=== PATIENT | female | born 1960 | race Caucasian/White ===

== ENCOUNTER 2016-11-16 08:23 | Emergency (ER) | payer BC ==
--- NOTE | 2016-11-16 08:35 | UC ---
Throat Pain/Nasal [place] HPI - HPI Summary HPI Summary: fever,sever facial pain in frontal sinus L>R. nasal congestion, feeling dizzy for 7 days - History of Current Complaint Chief Complaint: UCHeadache Stated Complaint: SINUS COMPLAINT Time Seen by Provider: 11/16/16 08:25 Hx Obtained From: Patient ?: No Onset/Duration: Sudden Onset, Lasting Days - 7, Still Present, Worse Since - past day Severity: Moderate Pain Intensity: 5 Pain Scale Used: 0-10 Numeric Cough: Nonproductive Associated Signs & Symptoms: Positive: Sinus Discomfort, Nasal Discharge, Fever Related History: Smoking, T & A - Allergies/Home Medications Allergies/Adverse Reactions: Allergies Allergy/AdvReac Type Severity Reaction Status Date / Time ROGER BASED ANTIBIOTIC Allergy Itching Uncoded 11/16/16 08:27 Home Medications: Home Medications guaiFENesin ER TAB [Mucinex*] 11/16/16 [History] PMH/Surg Hx/FS Hx/Imm Hx Previously Healthy: No - ADD - Family History Family History: denies cardiovascular issues in family lineage - Social History Occupation: Employed Full-time - [employer] Lives: With Family Alcohol Use: Weekly Substance Use Type: None Smoking Status (MU): Heavy Every Day Tobacco Smoker Type: Cigarettes Have You Smoked in the Last Year: Yes Household Exposure Type: Cigarettes Cessation Counseling: Counseled 3+Min - 10 Min Review of Systems Constitutional: Fever Skin: Negative Eyes: Negative ENT: Dental Pain, Ear Ache, Nasal Discharge Respiratory: Cough Cardiovascular: Negative Gastrointestinal: Negative Genitourinary: Negative Motor: Negative Neurovascular: Negative Musculoskeletal: Negative Neurological: Headache Psychological: Negative All Other Systems Reviewed And Are Negative: Yes Physical Exam Triage Information Reviewed: Yes Appearance: Well-Nourished, Ill-Appearing - mild, Pain Distress - mild Vital Signs Reviewed: Yes Eye Exam: Normal Eyes: Positive: Conjunctiva Clear ENT Exam: Normal ENT: Positive: Normal ENT inspection, Hearing grossly normal, Pharynx normal, Nasal congestion, Nasal drainage, TMs normal. Negative: Trismus, Muffled/ hoarse voice Neck exam: Normal Neck: Positive: Supple, Nontender, No Lymphadenopathy Respiratory Exam: Normal Respiratory: Positive: Chest non-tender, Lungs clear, Normal breath sounds, No respiratory distress, No accessory muscle use Cardiovascular Exam: Normal Cardiovascular: Positive: RRR, No Murmur, Pulses Normal, Brisk Capillary Refill Musculoskeletal Exam: Normal Musculoskeletal: Positive: Strength Intact, ROM Intact, No Edema Neurological Exam: Normal Neurological: Positive: Alert, Muscle Tone Normal Psychological Exam: Normal Skin Exam: Normal Throat Pain/Nasal Course/Dx - Course Assessment/Plan: change to HBP decongestant. increase fluids, augmentin, flonase , hypertension and nicotine modification information, follow up with pcp as planned for BP recheck and if needed for change , increase or failure of symptoms to improve - Differential Dx/Diagnosis Differential Diagnosis/HQI/PQRI: Influenza, Laryngitis, Otitis Media, Pharyngitis, Sinusitis, URI Provider Diagnoses: Sinusitis, high blood pressure without dx of hypertension, nicotine dependant Discharge - Discharge Plan Condition: Stable Disposition: HOME Prescriptions: Amoxicillin/Clavulanate TAB* [Augmentin TAB 875*] 875 mg PO BID #20 tab Fluticasone NASAL SPRAY 50MCG* [Flonase NASAL SPRAY 50MCG*] 2 spray BOTH NARES DAILY #1 btl Patient Education Materials: How to Stop Smoking (ED), Sinusitis (ED), Cigarette Smoking and Your Health (GEN), DASH Eating Plan (ED), Hypertension (ED ), How to Use Nasal [place] (ED) Referrals: Thong Barahona MD [Medical Doctor] - 2 Weeks (follow with your provider at [facility] as planned for blood pressure re-check, and help with quitting smoking) No Primary Care Phys,NOPCP [Primary Care Provider] -
[2016-11-16 08:38] VITALS: BP 170/90
== END 2016-11-16 08:52 | disposition home or self-care (01) ==
LOC: UCEAST 08:23
DX: J32.9 Chronic sinusitis, unspecified (principal); R03.0 Elevated blood-pressure reading, without diagnosis of hypertension; F17.210 Nicotine dependence, cigarettes, uncomplicated; Z88.1 Allergy status to other antibiotic agents
CPT/HCPCS: 99202; G0463

== ENCOUNTER 2018-01-14 06:47 | Observation (INO) | payer BC ==
[2018-01-14] MEDS ORDERED: HYDROmorphone INJ* 2 MG/ML CARPUJECT SYRINGE IV SLOW PU ONE (08:04)
[2018-01-14] MEDS ORDERED: Aspirin Low Dose CHEW TAB* 81 MG PO ONE (08:06)
--- NOTE | 2018-01-14 08:37 | RAD ---
INDICATION: Chest pain COMPARISON: None TECHNIQUE: An AP portable view obtained at 0810 hours is submitted. FINDINGS: Bones/Soft Tissues: There are no acute bony findings. Cardiomediastinal: The cardiomediastinal silhouette is normal. Lungs: There are no infiltrates. Pleura: There are no pleural effusions. Other: None IMPRESSION: NO ACTIVE DISEASE.
[2018-01-14 08:43] LABS: ABS Basophils 0.1 10^3/ul (0-0.2); ABS Eosinophils 0.2 10^3/ul (0-0.6); ABS Monocytes 0.5 10^3/ul (0-0.8); ABS Nucleated RBC 0 10^3/ul; Eosinophil % 3.3 % (0-6); Hematocrit 40 % (35-47); Hemoglobin 13.8 g/dl (12.0-16.0); Lymphocyte % 29.5 % (25-47); Mean Corpuscular HGB Conc 34 g/dl (31-36); Mean Corpuscular Hemoglobin 32 pg (27-31); Mean Corpuscular Volume 93 fL (80-97); Mean Platelet Volume 9 um3 (7.4-10.4); Nucleated Red Blood Cells % 0.1; Platelet Count 280 10^3/ul (150-450); Red Blood Count 4.35 10^6/ul (4.0-5.4); Red Cell Distribution Width 15 % (10.5-15); White Blood Count 6.8 10^3/ul (3.5-10.8)
[2018-01-14 08:53] LABS: INR 0.81 (0.77-1.02)
[2018-01-14 08:56] LABS: EGFR Non-African American 99.9 (>60)
[2018-01-14] MEDS ORDERED: Ketorolac INJ* 30 MG/ML 1 ML VIAL IV PUSH ONE (10:13)
[2018-01-14] MEDS ORDERED: Nicotine PATCH 21 MG/24 HR* PATCH TRANSDERM PRN (11:34)
[2018-01-14] MEDS ORDERED: Mouth Piece, Nicotine* 1 EACH CARTRIDGE INH PRN (11:34)
[2018-01-14] MEDS ORDERED: Nicotine Inhaler* 10 MG AMP INH PRN (11:34)
[2018-01-14] MEDS ORDERED: Ondansetron INJ* 2 MG/ML VIAL IV PRN (11:34)
[2018-01-14] MEDS ORDERED: Acetaminophen TAB* 325 MG PO PRN (11:34)
[2018-01-14] MEDS ORDERED: Perflutren Lipid Microsphere* 3 ML VIAL ONE (14:08)
--- NOTE | 2018-01-14 15:52 | ECHO ---
Patient: YAJAIRA MCKENZIE [facility] Rec#: [id number] : 1960 Date: 01/14/2018 Age: 57y Height: 170.2 cm / 67.0 in Weight: 73.9 kg / 162.9 lbs Sex: F BSA: 1.9 Room#: [facility] Admit Date#: 01/14/2018 Type: Inpatient Referring: Nilesh Pete Reading: Eddie Christiansne MD Purchasing Assistant: Nohemy Boone RN RDCS CC: Meena Mejia NP Transthoracic Echocardiogram Indication: Chest pain BP: 113/78 HR: 61 Rhythm: NSR Findings History: Smoker Technical Comments: The study is technically limited due to patient body habitus. The study is technically limited due to the patient's smoking history. Completed at 1535. Left Ventricle: The left ventricular chamber size, wall thickness and systolic function are within normal limits. There are no wall motion abnormalities The estimated ejection fraction is 55-60%. Normal left ventricular diastolic filling is observed. Left Atrium: The left atrial chamber size is normal. Right Ventricle: The right ventricular chamber size and systolic function are within normal limits. Right Atrium: The right atrial cavity size is normal. Aortic Valve: The aortic valve is trileaflet. There is a trace of aortic regurgitation. There is no evidence of aortic stenosis. Mitral Valve: The mitral valve leaflets are mildly thickened. There is a trace of mitral regurgitation. There is no evidence of mitral stenosis. Tricuspid Valve: The tricuspid valve leaflets are normal. There is trace to mild tricuspid regurgitation. No pulmonary hypertension is noted. There is no tricuspid stenosis. Pulmonic Valve: The pulmonic valve appears normal. There is a trace pulmonic regurgitation. There is no pulmonic stenosis. Pericardium: There is no significant pericardial effusion. A pericardial fat pad is visualized. Aorta: There is no dilatation of the ascending aorta. There is no dilatation of the aortic arch. There is no dilation of the aortic root. Pulmonary Artery: The main pulmonary artery is not well visualized. Venous: The inferior vena cava appears normal in size. There is a greater than 50% respiratory change in the inferior vena cava dimension. Contrast: Definity was used to optimize study. A total of 4 ml of diluted Definity was given IV. Conclusions The left ventricular chamber size, wall thickness and systolic function are within normal limits. There are no wall motion abnormalities The estimated ejection fraction is 55-60%. Normal left ventricular diastolic filling is observed. There is a trace of aortic regurgitation. There is a trace of mitral regurgitation. There is trace to mild tricuspid regurgitation. There is a trace pulmonic regurgitation. No reports of prior studies are offered for comparison. Measurements Name Value Normal Range RVDdMajor (2D) 3.1 cm (2.2 - 4.4) RAd ISD 4CH 4.6 cm (3.4 - 4.9) RA (A4C)W 3.3 cm (2.9 - 4.6) IVSd (2D) 0.9 cm (0.6 - 1) LVPWd (2D) 1 cm (0.6 - 1) LVIDd (2D) 4.9 cm (3.6 - 5.4) LVIDs (2D) 3.3 cm - LV FS (2D) 33 % (25 - 45) Aortic Annulus 1.9 cm (1.4 - 2.6) Ao root diameter (2D) 3 cm (2.1 - 3.5) Ascending Ao 2.8 cm (2.1 - 3.4) Aortic arch 2.6 cm (1.8 - 3.4) LA dimension (AP) 2D 3.4 cm (2.3 - 3.8) LAd ISD 4CH 4.9 cm (2.9 - 5.3) LA ISD 4CH W 4 cm (2.5 - 4.5) Name Value Normal Range LA ESV SP 4CH (A/L) 49 ml - LA ESV SP 2CH (A/L) 28 ml - LA ESV BP (A/L) 39 ml - LA ESV BP (A/L) index 21 ml/m2 - LA ESV SP 4CH (MOD) 45 ml - LA ESV SP 2CH (MOD) 27 ml - Name Value Normal Range MV E-wave Vmax 0.73 m/sec - MV deceleration time 238 msec - MV A-wave Vmax 0.7 m/sec - MV E:A ratio 1.1 ratio - LV septal e' Vmax 0.06 m/sec - LV lateral e' Vmax 0.1 m/sec - LV E:e' septal ratio 12.2 ratio - LV E:e' lateral ratio 7.3 ratio - Name Value Normal Range AV Vmax 1.5 m/sec - AV VTI 35.2 cm - AV peak gradient 8.5 mmHg - AV mean gradient 5.2 mmHg - LVOT Vmax 0.86 m/sec - LVOT VTI 19.7 cm - LVOT peak gradient 2 mmHg - LVOT mean gradient 1.8 mmHg - PALMER Vmax 1 m/sec - Name Value Normal Range TR Vmax 2.7 m/sec - TR peak gradient 29 mmHg - RAP 3 mmHg - RVSP 32 mmHg - IVC diameter 1.8 cm - Name Value Normal Range PV Vmax 0.76 m/sec -
--- NOTE | 2018-01-14 20:16 | HP ---
CC: [facility] * HISTORY AND PHYSICAL: DATE OF ADMISSION: 01/14/18 PRIMARY CARE DOCTOR: [facility], she is currently between doctors. MY ATTENDING WHILE IN THE HOSPITAL: Sarah Booker DO.* (DICTATED BY MIKE NGUYEN) CHIEF COMPLAINT: Chest pain for 10 minutes yesterday afternoon. HISTORY OF PRESENT ILLNESS: Ms. 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 She estimates 900 boxes a day; however, at the end of her day yesterday, she had intense pain as above. The patient felt that something is wrong by my feelings of intense doom. The patient denies it felt like a pulled muscle. The patient states that the intense pain lasted 10 minutes and was somewhat better after she belched. The patient denies any other associated symptoms such as sweating , shortness of breath, dizziness or palpitations. The patient states she had a similar episode approximately a year and a half ago, which she did not seek medical attention and also resolved without intervention. The patient had no associated symptoms with that episode either. The patient came into the emergency department today at the encouraging of her mother because the patient has one sister with nonischemic cardiomyopathy of cause unknown to the family and the patient had a sister who has an episode of sudden cardiac last year from which she was resuscitated, but now she has a pacemaker implanted. The patient is somewhat nauseous with the pain, but states that this subsided after intense pain was gone and that she feels it was due to the pain not accompanying the pain. The patient denies any recent illnesses. The patient has significant sick contacts due to her job, but has no other symptoms. The patient denies fevers, chills, does get hot flashes as she is menopausal. PAST MEDICAL HISTORY: Tobacco use disorder, history of hormone treatments for fertility. PAST SURGICAL HISTORY: Three C-sections, appendectomy, tonsillectomy. MEDICATIONS: 1. Naproxen 250 mg p.o. q.8 hours as needed for pain. 2. Pseudoephedrine 30 mg p.o. q.6 hours as needed for seasonal allergies. ALLERGIES: SEASONAL. FAMILY HISTORY: The patient's mother is alive and has a history significant for hypothyroidism. The patient's father had a triple bypass and is currently of cardiac issues. The patient's sister has an unknown etiology of nonischemic cardiomyopathy. As above, the patient's sister had sudden cardiac arrest with current pacemaker implantation and has known irregular heart rhythm. SOCIAL HISTORY: The patient is a [id number] current tobacco smoker. The patient drinks beer 4 times a week 2 to 6 beers each time. The patient denies any illicit drug use. The patient works at [employer] in [place]. The patient is engaged for 15 years. The patient has 4 children. The patient would like her surrogate decision makers to be either her daughter, Chacha Navarrete, or her mother, Amol Weaver. REVIEW OF SYSTEMS: A 14-point review of systems was conducted and is negative except as above. PHYSICAL EXAMINATION GENERAL: The patient is a 57-year-old female who appears stated age, sitting comfortably in bed, in no acute distress. VITAL SIGNS: Temperature 97.5, pulse rate 57, respiratory rate 18, oxygen saturation 97% on room air, blood pressure 156/70. HEENT: Head: Normocephalic, atraumatic. Sclerae anicteric. No conjunctival injection. Nasal mucosa moist. Oral mucosa moist. No pharyngeal erythema, drainage, or exudate. NECK: Supple, nontender. No lymphadenopathy. No JVD. No carotid bruit auscultated. RESPIRATORY: Clear to auscultation bilaterally. No wheezes, rales, or rhonchi. Good air exchange bilaterally. CARDIAC: Regular rate and rhythm. Sinus arrhythmia corresponding to the patient's breathing. No clicks, murmurs, gallops, or rubs. Pulses 2+ in bilateral dorsalis pedis, posterior tibialis, and radial areas. No bilateral lower extremity edema noted. No tenderness to bilateral calves. ABDOMEN: Soft, nontender, and nondistended. Bowel sounds present and normoactive in all 4 quadrants. No hepatosplenomegaly. No abdominal bruits auscultated. NEUROLOGICAL: Cranial nerves II through XII grossly intact. No focal deficits. Alert and oriented x3. PSYCHIATRIC: Very pleasant, cooperative. SKIN: Clean, dry, and intact. No rash. LABORATORY DATA: White blood cell count 6.8, hemoglobin 13.8, hematocrit 40, MCH 32, platelet count 280, INR 0.81, D-dimer less than 200. Sodium 137, potassium 4.4, chloride 105, carbon dioxide 24, anion gap 8, BUN 16, creatinine 0.62, glucose 86, lactic acid 1.0, calcium 9.4, magnesium 2.3, total bilirubin 0.3, AST 20, ALT 14, alkaline phosphatase 87, total creatine kinase 121, CK-MB 3.4, troponin I 0.00 x2. BNP 19, total protein 7.5, albumin 4.5, globulin 3.0, TSH 1.23. Beta hCG 1.2. DIAGNOSTIC STUDIES: Chest x-ray read as no active disease. Electrocardiogram shows no sinus rhythm, normal axis, no hypertrophy or enlargement. No blocks. No ST segment changes. No other abnormalities. Repeat EKG shows no significant changes. QTc of 427 and 455. IMPRESSION: Ms. Negrete is a 57-year-old female with no significant past history who presents with 10 minutes of intense chest pain radiating into her jaw with a strong cardiac history as well as 2 sisters with cardiac issues at young ages. The patient will be admitted to the hospital for echocardiogram, cardiac stress test, troponin trending and risk factor stratification. ASSESSMENT AND PLAN: 1. Chest pain. The patient has chest pain, which has the possibility of being cardiac in nature as it radiates to her jaw, was accompanied by activity, was intense. The patient has a very strong cardiac history. We will get an echocardiogram to assess for structural abnormalities that could predispose to arrhythmia. The patient has no signs of hypertrophy consistent with hokum on her echocardiogram; however, this will be further elicited by her echocardiogram. The patient will have a stress test in the morning. The patient will have a lipid profile and hemoglobin A1c drawn. The patient will be n.p.o. after midnight, have fluids at 75 an hour to avoid dehydration. 2. DVT prophylaxis. The patient is low risk. The patient will be encouraged to ambulate frequently. 3. FEN. The patient will have a heart healthy diet, no caffeine and fluids as above after midnight when she will be n.p.o. for her test. 4. Code status. The patient would like to be a full code. The patient's surrogate decision makers are her daughter and her mother as above. TIME SPENT: Approximately 1 hour spent on this admission, 30 of which was spent [id number] with the patient obtaining history and physical and discussing treatment plan. This plan has been discussed with my attending, Dr. Sarah Booker, and she is in agreement. MIKE NGUYEN [id number]/[facility] #: [id number] MARCOS
[2018-01-14] MEDS ORDERED: Nicotine Patch Removal NOTE FOLLOW UP SCH (21:00)
[2018-01-15] MEDS ORDERED: NS 0.9% 1000 ML* 1,000 ML IV SCH (00:01)
--- NOTE | 2018-01-15 00:32 | ED ---
Chaitanya Ledesma Stephanie, scribed for Marilyn Pinto MD on 01/14/18 at 1032 . HPI Chest Pain - HPI Summary HPI Summary: The pt is a 57 y/o F presenting to the ED with c/o CP that began yesterday at 15 :00 s/p exertion. The pt states she was picking up a heavy box when the CP began and it lasted 10 minutes. The pain radiated to her L neck and L jaw. The pt denies radiation of pain to the arms. She states she is distiller and sore at her chest. Aggravating factors include belching. The pt denies SOB and reoccurring pain. The pain is rated as a 4 in severity. The pt denies CP at this time. - History of Current Complaint Chief Complaint: EDChestPainROMI Time Seen by Provider: 01/14/18 08:02 Hx Obtained From: Patient Onset/Duration: Started Days Ago - 1, Resolved Timing: Intermittent, Lasting Minutes - 10 Current Severity: None Pain Intensity: 4 Pain Scale Used: 0-10 Numeric Chest Pain Location: Diffuse Chest Pain Radiates: Yes Chest Pain Radiates To:: Jaw - L, Neck Character: Exertion Aggravating Factor(s): Exertion Alleviating Factor(s): Spontaneous Resolution Associated Signs and Symptoms: Positive: Nausea. Negative: Shortness of Breath - Allergy/Home Medications Allergies/Adverse Reactions: Allergies Allergy/AdvReac Type Severity Reaction Status Date / Time ROGER BASED ANTIBIOTIC Allergy Itching Uncoded 01/14/18 06:55 Home Medications: Home Medications Naproxen TAB* [Naprosyn 250 mg TAB*] 250 mg PO Q8H PRN 01/14/18 [History Confirmed 01/14/18] Pseudoephedrine TAB* [Sudafed TAB*] 30 mg PO Q6H PRN 01/14/18 [History Confirmed 01/14/18] PMH/Surg Hx/FS Hx/Imm Hx Endocrine/Hematology History: Denies: Hx Diabetes Cardiovascular History: Denies: Hx Hypertension - Cancer History Hx Chemotherapy: No Hx Radiation Therapy: No - Surgical History Surgery Procedure, Year, and Place: X 3. APPY Infectious Disease History: No Infectious Disease History: Denies: Traveled Outside the [place] in Last 30 Days - Family History Known Family History: Positive: Cardiac Disease, Other - melanoma Family History: denies cardiovascular issues in family lineage - Social History Occupation: Employed Full-time Lives: Alone Alcohol Use: Weekly Substance Use Type: Reports: None Hx Tobacco Use: Yes Smoking Status (MU): Heavy Every Day Tobacco Smoker Type: Cigarettes Amount Used/How Often: LESS THAN PPD Have You Smoked in the Last Year: Yes Review of Systems Negative: Fever Positive: Chest Pain Positive: Nausea Positive: Other - L neck pain and jaw pain All Other Systems Reviewed And Are Negative: Yes Physical Exam - Summary Physical Exam Summary: Appearance: Ill-appearing, moderate pain distress, Well-nourished Skin: Warm, color reflects adequate perfusion Head: Normal Head/Face inspection Eyes: Conjunctiva clear ENT: Normal inspection Neck: Supple, no nodes, no JVD. Respiratory: Lungs clear, Normal breath sounds, no respiratory distress Cardio: RRR, No murmur, pulses normal, brisk capillary refill, CP not reproducible Abdomen: soft, nontender Bowel sounds: present Musculoskeletal: Strength Intact/ ROM intact. No calf tenderness. No edema. Neuro: Alert, muscle tone normal, facial symmetry, speech normal, sensory/motor intact Psychological: Normal Triage Information Reviewed: Yes Vital Signs On Initial Exam: Initial Vitals Temp Pulse Resp BP Pulse Ox 97.5 F 67 18 156/70 97 01/14/18 06:54 01/14/18 06:54 01/14/18 06:54 01/14/18 06:54 01/14/18 06:54 Vital Signs Reviewed: Yes Diagnostics - Vital Signs Vital Signs Temp Pulse Resp BP Pulse Ox 01/14/18 09:13 67 16 141/72 96 01/14/18 06:54 97.5 F 67 18 156/70 97 - Laboratory Lab Results: Lab Results 01/14/18 01/14/18 01/14/18 Range/Units 08:16 08:16 08:16 WBC 6.8 (3.5-10.8) 10^3/ul RBC 4.35 (4.0-5.4) 10^6/ul Hgb 13.8 (12.0-16.0) g/dl Hct 40 (35-47) % MCV 93 (80-97) fL MCH 32 H (27-31) pg MCHC 34 (31-36) g/dl RDW 15 (10.5-15) % Plt Count 280 (150-450) 10^3/ul MPV 9 (7.4-10.4) um3 Neut % (Auto) 59.3 (38-83) % Lymph % (Auto) 29.5 (25-47) % Barbour % (Auto) 6.9 (0-7) % Eos % (Auto) 3.3 (0-6) % Baso % (Auto) 1.0 (0-2) % Absolute Neuts (auto) 4.0 (1.5-7.7) 10^3/ul Absolute Lymphs (auto) 2.0 (1.0-4.8) 10^3/ul Absolute Monos (auto) 0.5 (0-0.8) 10^3/ul Absolute Eos (auto) 0.2 (0-0.6) 10^3/ul Absolute Basos (auto) 0.1 (0-0.2) 10^3/ul Absolute Nucleated RBC 0 10^3/ul Nucleated RBC % 0.1 INR (Anticoag Therapy) (0.77-1.02) D-Dimer, Quantitative (Less Than 230) ng/mL Sodium 137 (133-145) mmol/L Potassium 4.4 (3.5-5.0) mmol/L Chloride 105 (101-111) mmol/L Carbon Dioxide 24 (22-32) mmol/L Anion Gap 8 (2-11) mmol/L BUN 15 (6-24) mg/dL Creatinine 0.62 (0.51-0.95) mg/dL Est GFR ( Amer) 128.5 (>60) Est GFR (Non-Af Amer) 99.9 (>60) BUN/Creatinine Ratio 24.2 H (8-20) Glucose 86 (70-100) mg/dL Lactic Acid (0.5-2.0) mmol/L Calcium 9.4 (8.6-10.3) mg/dL Magnesium 2.3 (1.9-2.7) mg/dL Total Bilirubin 0.30 (0.2-1.0) mg/dL AST 20 (13-39) U/L ALT 14 (7-52) U/L Alkaline Phosphatase 87 (34-104) U/L Total Creatine Kinase 121 (10-223) U/L CK-MB (CK-2) 3.4 (0.6-6.3) ng/mL Troponin I 0.00 (<0.04) ng/mL B-Natriuretic Peptide 19 ( - 100) pg/mL Total Protein 7.5 (6.4-8.9) g/dL Albumin 4.5 (3.2-5.2) g/dL Globulin 3.0 (2-4) g/dL Albumin/Globulin Ratio 1.5 (1-3) TSH 1.23 (0.34-5.60) mcIU/mL Beta HCG, Quant 1.20 mIU/mL 01/14/18 01/14/18 Range/Units 08:16 08:16 WBC (3.5-10.8) 10^3/ul RBC (4.0-5.4) 10^6/ul Hgb (12.0-16.0) g/dl Hct (35-47) % MCV (80-97) fL MCH (27-31) pg MCHC (31-36) g/dl RDW (10.5-15) % Plt Count (150-450) 10^3/ul MPV (7.4-10.4) um3 Neut % (Auto) (38-83) % Lymph % (Auto) (25-47) % Barbour % (Auto) (0-7) % Eos % (Auto) (0-6) % Baso % (Auto) (0-2) % Absolute Neuts (auto) (1.5-7.7) 10^3/ul Absolute Lymphs (auto) (1.0-4.8) 10^3/ul Absolute Monos (auto) (0-0.8) 10^3/ul Absolute Eos (auto) (0-0.6) 10^3/ul Absolute Basos (auto) (0-0.2) 10^3/ul Absolute Nucleated RBC 10^3/ul Nucleated RBC % INR (Anticoag Therapy) 0.81 (0.77-1.02) D-Dimer, Quantitative < 200 (Less Than 230) ng/mL Sodium (133-145) mmol/L Potassium (3.5-5.0) mmol/L Chloride (101-111) mmol/L Carbon Dioxide (22-32) mmol/L Anion Gap (2-11) mmol/L BUN (6-24) mg/dL Creatinine (0.51-0.95) mg/dL Est GFR ( Amer) (>60) Est GFR (Non-Af Amer) (>60) BUN/Creatinine Ratio (8-20) Glucose (70-100) mg/dL Lactic Acid 1.0 (0.5-2.0) mmol/L Calcium (8.6-10.3) mg/dL Magnesium (1.9-2.7) mg/dL Total Bilirubin (0.2-1.0) mg/dL AST (13-39) U/L ALT (7-52) U/L Alkaline Phosphatase (34-104) U/L Total Creatine Kinase (10-223) U/L CK-MB (CK-2) (0.6-6.3) ng/mL Troponin I (<0.04) ng/mL B-Natriuretic Peptide ( - 100) pg/mL Total Protein (6.4-8.9) g/dL Albumin (3.2-5.2) g/dL Globulin (2-4) g/dL Albumin/Globulin Ratio (1-3) TSH (0.34-5.60) mcIU/mL Beta HCG, Quant mIU/mL Result Diagrams: 18 08:16 0318 08:16 Lab Statement: Any lab studies that have been ordered have been reviewed, and results considered in the medical decision making process. - Radiology CXR Xray Interpretation: No Acute Changes Radiology Interpretation Completed By: Radiologist - No active disease. - EKG 06:48 Cardiac Rate: NL EKG Rhythm: Sinus Rhythm - [address] Segment: Non-Specific Ectopy: None EKG Interpretation: nml AVIVCT, nml QTc, and nml axis EKG Comparison: Other - none to compare 07:34 Cardiac Rate: NL EKG Rhythm: Sinus Rhythm - [address] Segment: Non-Specific Ectopy: None EKG Interpretation: nml AVIVCT, nml QTc, and nml axis EKG Comparison: No Significant Change - since 06:48. Re-Evaluation - Re-Evaluation First Eval Re-Evaluation Time: 10:26 Change: Unchanged - ED physician discussed admission to the hospital with the pt and the pt's family. Second Eval Re-Evaluation Time: 11:06 Change: Improved Chest Pain Course/Dx - Course Course Of Treatment: ED physician discussed pt care with Dr. Booker who recommends admission to the hospital. ED physician discusses plan of admission with pt and family and pt agrees with plan. - Diagnoses Provider Diagnoses: Chest pain - Provider Notifications Discussed Care Of Patient With: Sarah Booker - Dr. Booker suggests admission into hospital. Time Discussed With Above Provider: 10:20 Discharge - Discharge Plan Condition: Stable Disposition: ADMITTED TO [facility] Referrals: Meena Alcantar RECLAMATION KETTLE TENDER [Primary Care Provider] - The documentation as recorded by the Chaitanya weldon Stephanie accurately reflects the service I personally performed and the decisions made by Blair hoover Barbara J, MD.
[2018-01-15 06:36] LABS: Hematocrit 39 % (35-47); Hemoglobin 13.6 g/dl (12.0-16.0); Mean Corpuscular HGB Conc 34 g/dl (31-36); Mean Corpuscular Hemoglobin 32 pg (27-31); Mean Corpuscular Volume 92 fL (80-97); Mean Platelet Volume 9 um3 (7.4-10.4); Platelet Count 246 10^3/ul (150-450); Red Cell Distribution Width 15 % (10.5-15); White Blood Count 5.8 10^3/ul (3.5-10.8)
[2018-01-15 06:51] LABS: EGFR Non-African American 89.8 (>60)
[2018-01-15 08:21] LABS: ABS Basophils 0 10^3/ul (0-0.2); ABS Eosinophils 0.2 10^3/ul (0-0.6); ABS Lymphocytes 1.8 10^3/ul (1.0-4.8); ABS Monocytes 0.4 10^3/ul (0-0.8); ABS Neutrophils 3.3 10^3/ul (1.5-7.7); ABS Nucleated RBC 0 10^3/ul; Eosinophil % 3.6 % (0-6); Lymphocyte % 31.3 % (25-47); Nucleated Red Blood Cells % 0.1
[2018-01-15] MEDS ORDERED: Aspirin EC Low Dose* 81 MG TAB.EC PO SCH (09:00)
--- NOTE | 2018-01-15 10:34 | RAD ---
INDICATION: Evaluate for cardiac ischemia COMPARISON: None TECHNIQUE: . Rest images were acquired following the intravenous injection of 10.9 millicuries of technetium 99m tetrofosmin. Exercise stress images were acquired following the intravenous administration of 25.1 millicuries of technetium 99m tetrofosmin. The patient was exercised to a peak heart rate of 152 which is 92% of age predicted maximum. FINDINGS: There are no defects of the stress-induced or fixed nature. The cardiac chamber size is normal. There are no wall motion abnormalities. The ejection fraction is calculated at 58 percent during stress. IMPRESSION: NO DEFECTS OR STRESS-INDUCED OR FIXED NATURE. NORMAL WALL MOTION. EJECTION FRACTION 58%. ASSESSMENT: LOW-RISK Based on imaging criteria from ACC/AHA 2002 Guideline Update for the Management of Patients With Chronic Stable Angina Table 23. Noninvasive Risk Stratification. Reference. HIGH-RISK (GREATER THAN 3% ANNUAL MORTALITY RATE) - Severe resting left ventricular dysfunction (LVEF < 35%) - Severe exercise left ventricular dysfunction (exercise LVEF < 35%) - Stress-induced large perfusion defect (particularly if anterior) - Stress-induced multiple perfusion defects of moderate size - Large, fixed perfusion defect with LV dilation or increased lung uptake (thallium-201) - Stress-induced moderate perfusion defect with LV dilation or increased lung uptake (thallium-201) INTERMEDIATE-RISK (1%-3% ANNUAL MORTALITY RATE) - Mild/moderate resting left ventricular dysfunction (LVEF = 35% to 49%) - Stress-induced moderate perfusion defect without LV dilation or increased lung intake (thallium-201) LOW-RISK (LESS THAN 1% ANNUAL MORTALITY RATE) - Normal or small myocardial perfusion defect at rest or with stress
[2018-01-15 14:36] VITALS: BP 145/87
--- NOTE | 2018-01-16 12:43 | DS ---
CC: [facility]* DISCHARGE SUMMARY: DATE OF ADMISSION: 01/14/18 DATE OF DISCHARGE: 01/15/18 PRIMARY CARE PROVIDER: [facility]. PRINCIPAL DIAGNOSIS: Noncardiac chest pain. SECONDARY DIAGNOSIS: Tobacco use disorder. DISCHARGE MEDICATIONS: 1. Naproxen 250 mg p.o. q. 8 hours p.r.n. pain. 2. Pseudoephedrine 30 mg p.o. q. 6 hours p.r.n. seasonal allergies/congestion. HOSPITAL COURSE: Ms. Negrete is a 57-year-old female with a history of tobacco abuse and strong family history of coronary disease including patient's father having significant coronary artery disease requiring triple bypass, sister having an episode of sudden cardiac arrest, and another sister with an unknown cause of nonischemic cardiomyopathy. The patient was at work lifting boxes, when she developed 9/10 pain spreading across her entire chest, shoulders, and up into her jaw. She typically lifts approximately 900 boxes a day and does not have any issues. The patient spoke with her family and they convinced her to come to the emergency room the day after this episode of chest pain. The patient was admitted and ruled out for an acute coronary syndrome with serial troponins. She underwent transthoracic echocardiogram which revealed a normal EF and no evidence of wall motion abnormalities. There is trace aortic regurgitation and trace mitral regurgitation and trace to mild tricuspid regurgitation and trace pulmonic regurgitation noted. She then underwent exercise nuclear stress test, which did not reveal any defects of stress induced or fixed nature. Normal wall motion and ejection fraction were noted. At this point, the patient is chest pain free. She will be discharged home today. On the day of discharge, the patient is awake, alert and oriented. Sitting up in the bed. No acute distress. Cardiac exam reveals a normal S1, S2 with a regular rate and rhythm. I did not appreciate any murmurs. There is no lower extremity edema. Pulmonary: Lungs are clear to auscultation bilaterally and her abdominal exam revealed soft, nontender, nondistended abdomen. FOLLOWUP CONCERNS: The patient is being discharged home today 01/15/18. Activity level is as tolerated. Diet is regular. Condition on discharge is stable. The patient has been counselled to stop smoking. TIME SPENT: Twenty minutes was spent discharging this patient. [id number]/[facility] #: [id number] E.J. NOBLE HOSPITALIngrid
== END 2018-01-15 14:30 | disposition home or self-care (01) ==
LOC: ED 06:47 → MEDTELE 10:26
PROVIDERS: ADMIT Hospitalist; ATTEND Hospitalist
DX: R07.9 Chest pain, unspecified (principal); F17.210 Nicotine dependence, cigarettes, uncomplicated; Z79.899 Other long term (current) drug therapy; R94.31 Abnormal electrocardiogram [ECG] [EKG]
CPT/HCPCS: 36415; 71045; 78452; 80048; 80053; 82550; 82553; 83036; 83605; 83735; 83880; 84443; 84484; 84702; 85025; 85379; 85610; 93005; 93017; 93306; 96374; 99284; A9270-GY; A9502; C8929; G0378; J1885